=== PATIENT | female | born 1940 | race Caucasian/White ===

== ENCOUNTER 2016-10-03 13:51 | Outpatient (CLI) | payer MEDICARE ==
--- NOTE | 2016-10-03 15:26 | RAD ---
PA AND LATERAL CHEST: Indication: Cough. FINDINGS: There is a large left suprahilar mass causing left upper lobe atelectasis. Right lung is clear. Ther e is moderate COPD change. Multilevel spondylosis. Vascular calcifications involving the aortic arch . IMPRESSION: New left suprahilar mass causing left upper lobe atelectasis. This is new from the comparison dated 04-27-11. Recommend dedicated CT of the thorax with IV contrast for further evaluation. Code T POS: [facility]
== END 2016-10-03 13:52 | disposition home or self-care (01) ==
LOC: NAV RAD 13:51
PROVIDERS: ATTEND Internal Medicine
DX: R05 Cough (principal); J98.11 Atelectasis
CPT/HCPCS: 71020

== ENCOUNTER 2016-10-04 10:19 | Outpatient (CLI) | payer MEDICARE ==
[~2016-10-04 10:19] MED LIST: Iopamidol 370 76% 100 ML VIAL ONE
[2016-10-04 11:08] LABS: Anion Gap 17 mmol/L (10-20); BUN (Urea Nitrogen) 10 mg/dL (9.8-20.1); Calc. Creatinine Clearance 0 mL/min (70-130); Calcium 9.5 mg/dL (7.8-10.44); Carbon Dioxide 20 mmol/L (23-31); Chloride 95 mmol/L (98-107); Estimated GFR-MDRD 71; Glucose 97 mg/dL (83-110); Potassium 4.6 mmol/L (3.5-5.1); Sodium 127 mmol/L (136-145)
--- NOTE | 2016-10-04 13:47 | CT ---
EXAM: CHEST CT WITH CONTRAST: HISTORY: Abnormal chest x-ray. Left lung mass. COMPARISON: None. CORRELATION: Chest radiograph 10/03/16. TECHNIQUE: Postcontrast head CT is performed in the axial plane. Coronal reformatted imaging is submitted for interpretation. FINDINGS: There is no mediastinal mass, lymphadenopathy, or hematoma. Heart size is within normal limits. No pericardial fluid. Visualized aorta has a normal caliber. No periaortic fat stranding. Hypodensity emanating from the right hepatic lobe measuring 1.6 cm cannot be further characterized. The trachea and right central bronchus is patent. There are emphysematous changes in both upper lob es. There are no suspicious masses in the right lung. No consolidation. There is adequate aeration of the left lower lobe with emphysematous change. There is partial conso lidation of the left upper lobe with areas of heterogeneous enhancement suggesting components of nec rosis. There is truncation of the left upper lobe bronchus. The aforementioned consolidation may b e due to a postobstructive process, secondary to a mucus plug in the bronchus or possibly due to a n eoplasm. Postobstructive pneumonia must also be considered given the heterogeneous appearance of th e left upper lobe. Pulmonary consultation for bronchoscopy is recommended. There are no osteoblast ic or osteolytic lesions. IMPRESSION: Left upper lobe opacification with truncation of the left upper lobe bronchus. Correlate for bronch us plug versus neoplasm. There appears to be postobstructive atelectasis with possible pneumonia. Extension of malignancy cannot be excluded. Bronchoscopy is recommended. POS: [facility]
== END 2016-10-04 10:20 | disposition home or self-care (01) ==
LOC: NAV CT 10:19
PROVIDERS: ATTEND Internal Medicine
DX: R22.9 Localized swelling, mass and lump, unspecified (principal)
CPT/HCPCS: 36415; 71260; 80048